=== PATIENT | male | born 1980 | race Two or more races ===

== ENCOUNTER 2020-07-11 10:42 | Outpatient (CLI) | payer OTHER | END 2020-07-11 13:30 | disposition home or self-care (01) | LOC: OFIC 805 10:42 | PROVIDERS: ATTEND Otolaryngology Otology & Neurotology | DX: H90.12 Conductive hearing loss, unilateral, left ear, with unrestricted hearing on the contralateral side (principal); H61.22 Impacted cerumen, left ear ==